=== PATIENT | female | born 1960 | race Caucasian/White ===

== ENCOUNTER 2025-02-07 09:52 | Emergency (ER) | payer OTHER, SELFPAY ==
[2025-02-07 10:00] VITALS: BP 118/79
[2025-02-07 10:20] VITALS: BMI 21.4
[2025-02-07 11:00] VITALS: BP 106/73
--- NOTE | 2025-02-07 11:09 | ED.GENMED ---
History of Present Illness
General
Chief Complaint: Foreign Body Ingestion
Source: patient
Exam Limitations: none
Time Seen by Provider: 02/07/25 10:47
History of Present Illness
History of Present Illness:
64-year-old female presents from [facility] stating that she has 10 bags of heroin wrapped in wax paper in her vagina since yesterday. She placed them yesterday. She states she ran out of Suboxone and wanted make sure she
had something to treat herself with in [facility]. No complaints otherwise
Past History
Past History
ED Past Medical History: Asthma, Psychiatric (Bipolar disorder, depression, PTSD) and Other (Sick Sinus syndrome)
ED Past Surgical History: Cardiac (Pacemaker insertion), Cholecystectomy, Gynecological ( section and tubal ligation) and Orthopedic (L3-4 and 5 fusion)
Social History
Tobacco: Former smoker
Alcohol: None
Drug: None
Living: [facility]
Phy Exam
Physical Exam
Physical Exam:
General: Well-appearing female no acute respiratory distress
HEENT: Normal cephalic atraumatic
Abdomen is soft nontender nondistended
Pelvic exam: Performed with female nurse, Zainab in the room, this was used with adequate overhead lighting and a speculum. Initial patient provided no visible foreign body
Course
Orders/Labs/Results
Orders:
Orders
02/07/25 11:05
CT Abd/pel Without Iv Or Oral Urgent
Comment:
Reason For Exam: foreign body
Vital Signs
Initial and Last Documented VS:
Initial Vital Signs
Temp Pulse Resp BP Pulse Ox
98.1 F 65 13 118/79 96
02/07/25 10:00 02/07/25 10:00 02/07/25 10:00 02/07/25 10:00 02/07/25 10:00
Last Documented Vital Signs
Temp Pulse Resp BP Pulse Ox
98.1 F 67 15 118/79 95
02/07/25 10:00 02/07/25 10:46 02/07/25 10:46 02/07/25 10:00 02/07/25 11:11
MDM/Problems Addressed
Differential Diagnosis Includes:
Initial inspection did not provide any visible foreign body in the vaginal area. Patient denies placing things in any other orifice. Will obtain CT scan of the abdomen and pelvis to confirm no foreign body
*Pulse Oximetry
SaO2: 95
Oxygen Mode of Delivery: Room air
Patient hypoxic: no
*Critical Care Note
Total Time (30-74mins, 75-104mins- exclusive of procedures): Not Applicable
Update Note
Update Note:
CT does demonstrate vaginal foreign body in the shape of the drug packet. Reexamination with speculum did provide evidence of retained vaginal foreign body. This was removed with a pair forceps. This was given to the corrections for evidence.
Stable for discharge back to [facility]
ED Attending Note
-
Portions of this chart may have been created with voice recognition software.� Occasional wrong word or��sound alike� substitutions may have occurred due to the inherent limitations of voice recognition software.
Discharge Plan
Departure
Patient Disposition: Home (Routine Discharge)
Date of Disposition: 02/07/25
Time of Disposition: 12:50
Patient with high blood pressure during this ER visit?: No
Discharge Problem:
Foreign body in vagina
Prescriptions:
No Action
albuterol sulfate 2.5 MG/3 ML solution for nebulization
2.5 mg inhalation R QIDPRN PRN (Reason: sob)
bismuth subsalicylate [Stomach Relief] 30 ML suspension
30 ml PO BIDPRN PRN (Reason: gi upset)
multivitamin with folic acid [Tab-A-Kiley] 1 TABLET tablet
1 tab PO DAILY
pantoprazole 40 MG tablet,delayed release (DR/EC)
40 mg PO BID 0RF
ibuprofen 600 mg tablet
600 mg PO Q8H PRN (Reason: pain) Qty: 10 0RF
Referrals:
[facility] [Family Provider, General]
Activity Restrictions/Additional Instructions:
You are medically clear and stable for discharge back to [facility] and incarceration
Interventions
Interventions:
*Risk Screen - Suicide Last Done: 02/07/25 10:16
*General Assessment Last Done: 02/07/25 10:00
*Neglect/Abuse Screening Last Done: 02/07/25 10:00
*ED- Fall Risk Assessment Last Done: 02/07/25 10:07
*ED COVID-19 Vaccine History Last Done: 02/07/25 10:00
*ED Influenza Vaccine History Last Done: 02/07/25 10:00
XT-Efrhsk-Hscqcpypkf Assessment Last Done: 02/07/25 10:16
ED- Pulmonary Assessment Last Done: 02/07/25 10:16
ED-EENT Assessment Last Done: 02/07/25 10:16
Discharge Date and Time
Print Language: OCCITAN
[2025-02-07 12:00] VITALS: BP 92/80
== END 2025-02-07 13:11 | disposition home or self-care (01) ==
LOC: EMR 09:52
PROVIDERS: EMERGENCY PHYSICIAN Emergency Medicine
DX: T19.2XXA Foreign body in vulva and vagina, initial encounter (principal); W44.F9XA Other object of natural or organic material, entering into or through a natural orifice, initial encounter; I49.5 Sick sinus syndrome; Z95.0 Presence of cardiac pacemaker; J45.909 Unspecified asthma, uncomplicated; F31.9 Bipolar disorder, unspecified; F43.10 Post-traumatic stress disorder, unspecified; Z87.891 Personal history of nicotine dependence
CPT/HCPCS: 99284; 74176